=== PATIENT | male | born 1965 | race Caucasian/White ===

== ENCOUNTER 2019-12-19 09:26 | Emergency (ER) | payer MEDICAID ==
--- NOTE | 2019-12-19 09:59 | EDM.PDOC ---
ED HPI GENERAL MEDICAL PROBLEM - General Chief Complaint: Behavioral/Psych Stated Complaint: ALTERED MENTAL STATUS Time Seen by Provider: 12/19/19 09:54 Source of Information: Reports: Patient, Family (daughter) History Limitations: Reports: No Limitations - History of Present Illness INITIAL COMMENTS - FREE TEXT/NARRATIVE: 54-year-old male brought to the ED from [facility] where he resides [place] the city. He is brought to the ED for evaluation in regards to apparent underlying dementia symptoms. He has apparently been assessed multiple times at [facility] psychiatric facility in the past. Apparently he has deteriorated in function and it is the request of his psychiatrist that he be seen at the nearest hospital for evaluation and transport ideally to [facility] in [place]. I find him to be very pleasant cooperative and acting quite normally. He does not drink alcohol. He is unmarried. He denies street drug use. He smokes a pack to pack and half cigarettes per day. He takes no medications. There is no history of traumatic brain injury. It is unclear when his symptoms of poor memory and deterioration in cognitive function started. Onset: Unknown/Unsure Duration: Constant, Getting Worse Location: Reports: Other (Apparently he is suffering from memory impairment and cognitive decline combined with dementia of early onset by history. He has not been seen in our hospital in the past and therefore no imaging of his brain is available.) Quality: Reports: Other Severity: Moderate Improves with: Reports: None Worsens with: Reports: None Context: Reports: Other (Declining cognitive and memory compatible with organic brain disease which is been labeled as dementia. Is unclear if he has Lewy body dementia as he is quite young.). Denies: Activity, Exercise, Lifting, Sick Contact, Trauma Associated Symptoms: Reports: Confusion. Denies: Chest Pain, Cough, cough w sputum, Diaphoresis, Fever/Chills, Headaches, Loss of Appetite, Malaise, Nausea/ Vomiting, Seizure, Shortness of Breath, Syncope Treatments BIT TRIPOLER: Reports: Other (see below) (He takes no medications.) - Related Data Allergies Allergy/AdvReac Type Severity Reaction Status Date / Time No Known Allergies Allergy Verified 12/19/19 09:48 Home Meds: Home Meds . [Unable to Verify Home Med List] 12/19/19 [History] Past Medical History Musculoskeletal History: Reports: Back Pain, Chronic (Intermittent low back pain.) Neurological History: Reports: Other (See Below) (Apparently has been declining and level of memory impairment and cognitive function compare with a form of dementia.) Psychiatric History: Reports: Aggressive/Hostile Behaviors, Antisocial Behaviors , Dementia (Working diagnosis is Lewy body dementia), Mood Swings, Other (See Below) (Insomnia. Treated with trazodone at at bedtime.) Endocrine/Metabolic History: Reports: Diabetes, Type II (Patient is a type II diabetic controlled with insulin. Lantus 50 units at bedtime. 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 He does not often use them.) Respiratory: Reports: Cough (Occasional nonproductive cough. He is a smoker of a pack and 1/2/day for the last 40 years) Cardiovascular: Denies: Chest Pain, Blood Pressure Problem, Claudication, Dyspnea on Exertion, Edema, Lightheadedness, Orthopnea Endocrine: Reports: No Symptoms GI/Abdominal: Reports: No Symptoms : Reports: Other (Nocturia possibly once.) Musculoskeletal: Reports: Back Pain, Joint Pain (Patient problems with low back pain) Skin: Reports: No Symptoms ( nasal knee and hip pain) Neurological: Reports: Confusion, Pre-Existing Deficit (Apparently he has been developing dementia symptoms for the last year). Denies: Dizziness, Headache, Numbness, Paresthesia, Seizure, Syncope, Tingling, Tremors, Trouble Speaking, Difficulty Walking, Weakness, Change in Speech, Gait Disturbance, Other Psychiatric: Reports: Anxiety (Mild anxiety), Confusion, Mood Lability. Denies : Hallucinations, Homicidal Ideation Hematologic/Lymphatic: Reports: No Symptoms Immunologic: Reports: No Symptoms - Physical Exam Exam: See Below Exam Limited By: No Limitations General Appearance: Alert, WD/WN, No Apparent Distress, Other (Temperature is 36.1. Heart rate is 81 respiratory is 18 BP 123/99 pulse ox 98% on room air) Eye Exam: Bilateral Eye: Normal Inspection, PERRL Ears: Normal TMs (No blepharal pallor or scleral icterus.) Throat/Mouth: Normal Inspection, Normal Lips, Normal Oropharynx, Other (No) Head Exam: Atraumatic, Normocephalic ( abnormalities of the oropharynx), Other ( No outward signs of any head or facial trauma) Neck: Normal Inspection, Supple, Non-Tender, Full Range of Motion. No: Carotid Bruit, Lymphadenopathy (L), Lymphadenopathy (R), Thyromegaly Respiratory/Chest: No Respiratory Distress, Lungs Clear, Normal Breath Sounds, No Accessory Muscle Use, Other (Occasional nonproductive cough). No: Rhonchi, Wheezing Cardiovascular: Normal Peripheral Pulses, Regular Rate, Rhythm, No Edema, No Gallop, No Murmur, No Rub GI/Abdominal: Normal Bowel Sounds, Soft, Non-Tender, No Organomegaly, No Mass, Pelvis Stable, Other (No surgical scars) (Male) Exam: No Hernia Neuro Exam (Abbreviated): Alert, Oriented, CN II-XII Intact, Normal Gait, No Motor/Sensory Deficits, Memory Loss Remote Events, Memory Loss Recent Events. No: Abnormal Gait, Abnormal Reflexes DTR: 1+: Achilles (R), Achilles (L), 2+: Bicep (R), Bicep (L), Patella (R), Patella (L) Back Exam: Normal Inspection, Full Range of Motion. No: CVA Tenderness (L), CVA Tenderness (R) Extremities: Normal Inspection, Normal Range of Motion, Non-Tender, No Pedal Edema Psychiatric: Normal Affect, Normal Mood Skin Exam: Warm, Dry, Intact, Normal Color, No Rash EKG INTERPRETATION EKG Date: 12/19/19 Time: 10:01 Rhythm: NSR Rate (Beats/Min): 69 [place]: LAD-Left [place] Deviation P-Wave: Present (Minimal left axis deviation of -3 degrees) QRS: Other (Decreased voltage precordial leads. Early R wave transition consider septal hypertrophy pattern versus right ventricular appear to be pattern) ST-T: Other (T wave flattening in leads III and aVF nonspecific findings) QT: Normal EKG Interpretation Comments: Borderline ECG Course - Vital Signs Last Recorded V/S: Last Vital Signs Temp 36.1 C 12/19/19 09:44 Pulse 81 12/19/19 09:44 Resp 18 12/19/19 09:44 BP 123/99 H 12/19/19 09:44 Pulse Ox 98 12/19/19 09:44 - Orders/Labs/Meds Orders: Active Orders 24 hr Category Date Time Status EKG Documentation Completion [RC] STAT Care 12/19/19 10:00 Active URINALYSIS W/MICROSCOPIC [UA W/MICROSCOPIC] [URIN] Stat Lab 12/19/19 11:28 Ordered Labs: Laboratory Tests 12/19/19 12/19/19 12/19/19 Range/Units 10:10 10:10 10:10 WBC 8.60 (4.23-9.07) K/mm3 RBC 5.33 (4.63-6.08) M/mm3 Hgb 16.1 (13.7-17.5) gm/dl Hct 46.2 (40.1-51.0) % MCV 86.7 (79.0-92.2) fl MCH 30.2 (25.7-32.2) pg MCHC 34.8 (32.2-35.5) g/dl RDW Std Deviation 40.8 (35.1-43.9) fL Plt Count 200 (163-337) K/mm3 MPV 10.6 (9.4-12.3) fl Neut % (Auto) 57.9 (34.0-67.9) % Lymph % (Auto) 30.6 (21.8-53.1) % Toombs % (Auto) 9.5 (5.3-12.2) % Eos % (Auto) 1.4 (0.8-7.0) Baso % (Auto) 0.5 (0.1-1.2) % Neut # (Auto) 4.98 (1.78-5.38) K/mm3 Lymph # (Auto) 2.63 (1.32-3.57) K/mm3 Toombs # (Auto) 0.82 (0.30-0.82) K/mm3 Eos # (Auto) 0.12 (0.04-0.54) K/mm3 Baso # (Auto) 0.04 (0.01-0.08) K/mm3 Sodium 134 L (136-145) mEq/L Potassium 4.5 (3.5-5.1) mEq/L Chloride 102 (98-107) mEq/L Carbon Dioxide 21 (21-32) mEq/L Anion Gap 15.5 H (5-15) BUN 20 H (7-18) mg/dL Creatinine 1.0 (0.7-1.3) mg/dL Est Cr Clr Drug Dosing 86.18 mL/min Estimated GFR (MDRD) > 60 (>60) mL/min BUN/Creatinine Ratio 20.0 H (14-18) Glucose 346 H (74-106) mg/dL Hemoglobin A1c (4.50-6.20) % Calcium 9.3 (8.5-10.1) mg/dL Magnesium 2.0 (1.8-2.4) mg/dl Total Bilirubin 0.6 (0.2-1.0) mg/dL AST 7 L (15-37) U/L ALT 25 (16-63) U/L Alkaline Phosphatase 64 (46-116) U/L C-Reactive Protein 1.5 H* (<1.0) mg/dL Total Protein 7.0 (6.4-8.2) g/dl Albumin 3.5 (3.4-5.0) g/dl Globulin 3.5 gm/dL Albumin/Globulin Ratio 1.0 (1-2) TSH 3rd Generation 1.073 (0.358-3.74) uIU/mL Salicylates 3.7 (2.8-20) mg/dL Urine Opiates Screen (IPDBCY=774) Ur Buprenorphine Scrn (CUTOFF=10) Ur Oxycodone Screen (SQR3OG=365) Urine Methadone Screen (STF4WL=769) Ur Propoxyphene Screen (VEVNOW=205) Acetaminophen 0 L (10-30) ug/mL Ur Barbiturates Screen (UXUHMJ=862) Ur Tricyclics Screen (ECYOOV=967) Ur Phencyclidine Scrn (CUTOFF=25) Ur Amphetamine Screen (PEAYKR=535) U Methamphetamines Scrn (QCDHYV=428) U Benzodiazepines Scrn (GJNBJK=701) U Cocaine Metab Screen (NWWYDI=058) U Marijuana (THC) Screen (CUTOFF=50) Ethyl Alcohol 0.00 (0.00) gm% 12/19/19 12/19/19 Range/Units 10:10 10:15 WBC (4.23-9.07) K/mm3 RBC (4.63-6.08) M/mm3 Hgb (13.7-17.5) gm/dl Hct (40.1-51.0) % MCV (79.0-92.2) fl MCH (25.7-32.2) pg MCHC (32.2-35.5) g/dl RDW Std Deviation (35.1-43.9) fL Plt Count (163-337) K/mm3 MPV (9.4-12.3) fl Neut % (Auto) (34.0-67.9) % Lymph % (Auto) (21.8-53.1) % Toombs % (Auto) (5.3-12.2) % Eos % (Auto) (0.8-7.0) Baso % (Auto) (0.1-1.2) % Neut # (Auto) (1.78-5.38) K/mm3 Lymph # (Auto) (1.32-3.57) K/mm3 Toombs # (Auto) (0.30-0.82) K/mm3 Eos # (Auto) (0.04-0.54) K/mm3 Baso # (Auto) (0.01-0.08) K/mm3 Sodium (136-145) mEq/L Potassium (3.5-5.1) mEq/L Chloride (98-107) mEq/L Carbon Dioxide (21-32) mEq/L Anion Gap (5-15) BUN (7-18) mg/dL Creatinine (0.7-1.3) mg/dL Est Cr Clr Drug Dosing mL/min Estimated GFR (MDRD) (>60) mL/min BUN/Creatinine Ratio (14-18) Glucose (74-106) mg/dL Hemoglobin A1c 7.10 H (4.50-6.20) % Calcium (8.5-10.1) mg/dL Magnesium (1.8-2.4) mg/dl Total Bilirubin (0.2-1.0) mg/dL AST (15-37) U/L ALT (16-63) U/L Alkaline Phosphatase (46-116) U/L C-Reactive Protein (<1.0) mg/dL Total Protein (6.4-8.2) g/dl Albumin (3.4-5.0) g/dl Globulin gm/dL Albumin/Globulin Ratio (1-2) TSH 3rd Generation (0.358-3.74) uIU/mL Salicylates (2.8-20) mg/dL Urine Opiates Screen Negative (VLMQCK=104) Ur Buprenorphine Scrn Negative (CUTOFF=10) Ur Oxycodone Screen Negative (XMF2ZB=669) Urine Methadone Screen Negative (HRV4WM=722) Ur Propoxyphene Screen Negative (ZPIOWW=044) Acetaminophen (10-30) ug/mL Ur Barbiturates Screen Negative (APNDOM=558) Ur Tricyclics Screen Negative (KHDABP=110) Ur Phencyclidine Scrn Negative (CUTOFF=25) Ur Amphetamine Screen Negative (EHFAZP=688) U Methamphetamines Scrn Negative (YWIFXH=700) U Benzodiazepines Scrn Negative (UEKCQQ=854) U Cocaine Metab Screen Negative (LDTTRP=147) U Marijuana (THC) Screen Negative (CUTOFF=50) Ethyl Alcohol (0.00) gm% Meds: Medications Discontinued Medications Generic Name Dose Route Start Last Admin Trade Name Freq PRN Reason Stop Dose Admin Diphenhydramine HCl 50 mg 12/19/19 10:33 12/19/19 10:46 Benadryl PO 12/19/19 10:34 50 mg ONETIME ONE Administration Insulin Human Regular 12 unit 12/19/19 11:30 12/19/19 11:41 Humulin R SUBCUT 12/19/19 11:31 12 unit ONETIME ONE Administration Lorazepam 2 mg 12/19/19 10:33 12/19/19 10:46 Ativan PO 12/19/19 10:34 2 mg ONETIME ONE Administration Lorazepam 2 mg 12/19/19 12:36 Ativan PO 12/19/19 12:37 ONETIME ONE Ziprasidone 10 mg 12/19/19 12:13 Geodon PO 12/19/19 12:14 ONETIME ONE Ziprasidone 20 mg 12/19/19 12:37 Geodon PO 12/19/19 12:38 ONETIME ONE - Radiology Interpretation Free Text/Narrative:: 54-year-old male brought to the ED for evaluation of gradually worsening dementia. He has been seen in and out of [facility] apparently over the last 6 months. He was at home to see how he would function on his own over the last week but has failed this trial. Apparently still trying to drive a motor vehicle and easily gets lost. He is not capable of looking after himself in terms of doing any cooking or self hygiene etc. He needs direction to perform all of these procedures. He more or less requires 24 -hour day care. Daughter apparently has been in contact with his psychiatrist Dr. Bryant in [facility] in [place] and she advised that he be brought to the nearest hospital for medical evaluation and potential transport to that facility. Apparently he has a history of getting very angry and belligerent. At the time he is seen in the ED he is cooperative. However he was brought here under false pretenses that he was going to see a baby. Plan will be to have an ECG performed and routine labs and urine drug screen. - Re-Assessments/Exams Free Text/Narrative Re-Assessment/Exam: 12/19/19 10:34 further history obtained from Dr. Bryant in [place] indicates that the working diagnosis here is Lewy body dementia. Explain his young age of development of dementia and the rapidity of which it has occurred. She recommends 2 mg of Ativan and 50 mg of Benadryl p.o. After the labs are back we will look for appropriate transport to [facility] in [place]. Committal papers have been filled out. 12/19/19 11:17 White count is 8.60 with an auto differential of 58%. Hemoglobin is 16.1 with hematocrit of 46.2 suggesting mild hemoconcentration. The patient has been taking fluids in the ED. Platelet count is 200,000. Sodium is slightly low at 134 with a potassium of 4.5 chloride is 102 with a bicarb of 21. Anion gap is 15.5. BUN is 20 with a creatinine of 1.0. GFR remains greater than 60. Glucose is elevated at 346. Calcium 9.3 magnesium 2.0. Liver function normal. C-reactive protein is 1.5. Total protein is 7.0 with an albumin fraction of 3.5. TSH is normal at 1.073. Urine drug screen reveals a salicylate level of 3.7. Acetaminophen is 0. Blood alcohol is 0.00 and drug screen is negative. A hemoglobin A1c will be ordered to rule out occult type 2 diabetes. 12/19/19 11:19 patient has been accepted by department of psychiatry services at [facility] in [place] Dr. Bryant. We are in the process of arranging transportation tentatively by ambulance with a [facility] deputy on board. She did take Benadryl 50 mg p.o. with Ativan 2 mg p.o. at approximately 1050 hrs. 12/19/19 11:30 she did not eat much of his dinner meal. He indicates that he did take his 50 units of Lantus insulin last evening. He takes this once daily according to records obtained from [place]. He usually takes anywhere from 3 to 11 units of insulin with meals. Current blood sugar is 346 he will therefore be given 12 units of regular insulin subcu at this time. 12/19/19 11:37 second ECG reveals no wandering of the baseline. There is a Q wave in V1 only. There is early R wave transition in V2. Concern for right ventricular peritoneal versus septal hypertrophy pattern. There is an acute early repolarization pattern in V2 to V5. There is a short WI interval. ST segment depression appreciated in leads II, III and aVF and V6 now but all minimal compared to initial assessment. Still concerning for inferior apical ischemia. 12/19/19 12:38 Patient is becoming increasingly agitated the longer we make him wait for transfer. I am going to therefore add another 2 mg of Ativan orally if he will take it and Geodon 20 mg p.o. as well. Sprayer Operator deputy is here from [facility] in the ambulance should be here within the next 20 minutes to provide transport to [facility]. Departure - Departure Time of Disposition: 12:45 Disposition: DC/Tfer to Psych Hosp/Unit 65 Condition: Poor Clinical Impression: Lewy body dementia with behavioral disturbance - Discharge Information *PRESCRIPTION DRUG MONITORING PROGRAM REVIEWED*: Not Applicable *COPY OF PRESCRIPTION DRUG MONITORING REPORT IN PATIENT KAMRON: Not Applicable Referrals: Vishal Gates MD [Primary Care Provider] - Forms: ED Department Discharge Additional Instructions: Patient to be transferred to [facility] in [place] under the care of Dr. Bryant from the department of psychiatry due to increased behavioral problems related to dementia. The working diagnosis is that he has Lewy body dementia since his declining cognitive function and memory impairment has occurred rather rapidly. Also his young age. Patient became somewhat agitated at the time of discharge and required Geodon and 20 mg orally with Ativan 2 mg orally once again. Sepsis Event Note - Evaluation Sepsis Screening Result: No Definite Risk - Focused Exam Vital Signs: Vital Signs Temp Pulse Resp BP Pulse Ox 12/19/19 09:44 36.1 C 81 18 123/99 H 98 Date Exam was Performed: 12/19/19 Time Exam was Performed: 12:45 - My Orders Last 24 Hours: My Active Orders 12/19/19 10:00 EKG Documentation Completion [RC] STAT 12/19/19 11:28 URINALYSIS W/MICROSCOPIC [UA W/MICROSCOPIC] [URIN] Stat - Assessment/Plan Last 24 Hours: My Active Orders 12/19/19 10:00 EKG Documentation Completion [RC] STAT 12/19/19 11:28 URINALYSIS W/MICROSCOPIC [UA W/MICROSCOPIC] [URIN] Stat
[2019-12-19] MEDS ORDERED: LORazepam 1 MG Tab PO ONE ×2 (10:33→12:36)
[2019-12-19] MEDS ORDERED: diphenhydrAMINE 50 MG Cap PO ONE (10:33)
[2019-12-19 11:12] LABS: ACETAMINOPHEN 0 ug/mL (10-30)
[2019-12-19] MEDS ORDERED: Insulin Regular, Human 100 Units/ML 3 ML Vial SUBCUT ONE (11:30)
[2019-12-19 11:37] LABS: HEMOGLOBIN A1C 7.1 % (4.50-6.20)
[2019-12-19] MEDS ORDERED: Ziprasidone HCl 20 MG Cap PO ONE ×2 (12:13→12:37)
[2019-12-19] MEDS ORDERED: Nicotine 21 MG/24 Hr Patch TRDERM ONE (12:45)
== END 2019-12-19 13:10 ==
LOC: JD.ED 09:26
DX: G31.83 Neurocognitive disorder with Lewy bodies (principal); F02.81 Dementia in other diseases classified elsewhere, unspecified severity, with behavioral disturbance; E11.9 Type 2 diabetes mellitus without complications; Z79.4 Long term (current) use of insulin; F17.210 Nicotine dependence, cigarettes, uncomplicated
CPT/HCPCS: 36415; 80053; 80306; 80307; 81001; 82962; 83036; 83735; 84443; 85025; 86140; 93005; 99285; A9270; J1815; 93010

== ENCOUNTER 2021-03-20 13:38 | Emergency (ER) | payer MEDICAID ==
--- NOTE | 2021-03-20 14:03 | EDM.PDOCBH ---
ED HPI GENERAL MEDICAL PROBLEM - General Chief Complaint: Behavioral/Psych Stated Complaint: MENTAL HEALTH EVALUATION Time Seen by Provider: 03/20/21 13:57 Source of Information: Reports: Patient, Family (daughter), Long-Term Records (Minor), RN Notes Reviewed, Other (Account Development Executive, Sole Myers) History Limitations: Reports: No Limitations - History of Present Illness INITIAL COMMENTS - FREE TEXT/NARRATIVE: Patient is a 56-year-old male brought into the ER by his daughter for a mental health evaluation. Patient is known to have Lewy body dementia. We were made aware from staff at [facility], that the patient has been smoking cigarettes, and then putting him out on the carpet, putting him and other residents at risk or harm. [facility] does also state that Mansoor is leaving [place], he is walking in the middle the street, putting himself at extreme harm or risk. They state that he is refusing his needed medications, and does get angry or agitated with redirection. Patient does have a history of hostile behavior, and was seen in this ER roughly a year ago, and was given medications to help calm him down. He does have conservatorship granted to his daughter, Alex, and a emergency hold is in place for this gentleman for ongoing management. When I talk with the patient, he is not hearing things that are not there, is not seeing things that are not there, he states that he has no sick symptoms or other concerns. General consensus is that the patient will likely need [facility] psychiatric placement. - Related Data Allergies Allergy/AdvReac Type Severity Reaction Status Date / Time No Known Allergies Allergy Verified 03/20/21 13:58 Home Meds: Home Meds . [Unable to Verify Home Med List] 12/19/19 [History] Past Medical History Gastrointestinal History: Reports: GERD Musculoskeletal History: Reports: Back Pain, Chronic Neurological History: Reports: Other (See Below) Other Neuro History: Lewy Body Dementia Psychiatric History: Reports: Aggressive/Hostile Behaviors, Antisocial Behaviors, Dementia (Lewy Body), Mood Swings, Other (See Below) Other Psychiatric History: Insomnia Endocrine/Metabolic History: Reports: Diabetes, Type II, Obesity/BMI 30+ Social & Family History - Family History Family Medical History: No Pertinent Family History - Tobacco Use Tobacco Use Status *Q: Current Every Day Tobacco User Years of Tobacco use: 20 Packs/Tins Daily: 1 - Caffeine Use Caffeine Use: Reports: Soda - Recreational Drug Use Recreational Drug Use: No - Living Situation & Occupation Living situation: Reports: , Alone (Lives alone in [place], [place]) 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 ED EXAM, BEHAVIORAL HEALTH - Physical Exam Exam: See Below Exam Limited By: No Limitations General Appearance: Alert, WD/WN, No Apparent Distress Respiratory/Chest: No Respiratory Distress, Lungs Clear, Normal Breath Sounds, No Accessory Muscle Use, Chest Non-Tender Cardiovascular: Normal Peripheral Pulses, Regular Rate, Rhythm, No Edema GI/Abdominal: Normal Bowel Sounds, Soft, Non-Tender, No Distention, No Mass Extremities: Normal Inspection, Normal Capillary Refill Neurological: Alert, Normal Mood/Affect, Normal Cognition, Oriented x 3 Psychiatric: Alert, Normal Affect, Normal Cognition, Normal Mood. No: Suicidal Plan, Suicidal Thoughts, Auditory Hallucinations, Visual Hallucinations Skin Exam: Warm, Dry, Intact, Normal color, No rash #1 Interpretation EKG Date: 03/20/21 Time: 14:31 Rhythm: NSR Rate (Beats/Min): 90 [place]: Normal P-Wave: Present QRS: Normal ST-T: Normal QT: Normal Comparison: NA - No Prior EKG EKG Interpretation Comments: No obvious ischemia or acute ST changes noted, reviewed by myself and Dr. Lu. COURSE, BEHAVIORAL HEALTH COMP - Course Vital Signs: Last Vital Signs Temp 97.6 F 03/20/21 13:55 Pulse 104 H 03/20/21 13:55 Resp 16 03/20/21 13:55 BP 152/106 H 03/20/21 13:55 Pulse Ox 96 03/20/21 13:55 Orders, Labs, Meds: Laboratory Tests 03/20/21 03/20/21 03/20/21 Range/Units 14:00 14:04 14:04 WBC 7.16 (4.23-9.07) K/mm3 RBC 5.33 (4.63-6.08) M/mm3 Hgb 15.7 (13.7-17.5) gm/dl Hct 46.2 (40.1-51.0) % MCV 86.7 (79.0-92.2) fl MCH 29.5 (25.7-32.2) pg MCHC 34.0 (32.2-35.5) g/dl RDW Std Deviation 43.7 (35.1-43.9) fL Plt Count 172 (163-337) K/mm3 MPV 10.5 (9.4-12.3) fl Neut % (Auto) 53.6 (34.0-67.9) % Lymph % (Auto) 33.5 (21.8-53.1) % Becker % (Auto) 10.5 (5.3-12.2) % Eos % (Auto) 1.7 (0.8-7.0) Baso % (Auto) 0.4 (0.1-1.2) % Neut # (Auto) 3.84 (1.78-5.38) K/mm3 Lymph # (Auto) 2.40 (1.32-3.57) K/mm3 Becker # (Auto) 0.75 (0.30-0.82) K/mm3 Eos # (Auto) 0.12 (0.04-0.54) K/mm3 Baso # (Auto) 0.03 (0.01-0.08) K/mm3 Sodium 139 (136-145) mEq/L Potassium 4.0 (3.5-5.1) mEq/L Chloride 106 (98-107) mEq/L Carbon Dioxide 22 (21-32) mEq/L Anion Gap 15.0 (5-15) BUN 14 (7-18) mg/dL Creatinine 1.1 (0.7-1.3) mg/dL Est Cr Clr Drug Dosing 76.50 mL/min Estimated GFR (MDRD) > 60 (>60) mL/min BUN/Creatinine Ratio 12.7 L (14-18) Glucose 316 H (70-99) mg/dL POC Glucose (70-99) mg/dL Calcium 8.2 L (8.5-10.1) mg/dL Total Bilirubin 0.4 (0.2-1.0) mg/dL AST 17 (15-37) U/L ALT 21 (16-63) U/L Alkaline Phosphatase 67 (46-116) U/L Total Protein 6.7 (6.4-8.2) g/dl Albumin 3.3 L (3.4-5.0) g/dl Globulin 3.4 gm/dL Albumin/Globulin Ratio 1.0 (1-2) TSH 3rd Generation 0.924 (0.358-3.74) uIU/mL Salicylates (2.8-20) mg/dL Urine Opiates Screen (XVNMRR=892) Ur Buprenorphine Scrn (CUTOFF=10) Ur Oxycodone Screen (VQS9QL=836) Urine Methadone Screen (QMJ8CW=855) Ur Propoxyphene Screen (HXYXRL=687) Acetaminophen 0 L (10-30) ug/mL Ur Barbiturates Screen (UMNNBV=802) Ur Tricyclics Screen (KRNFPN=165) Ur Phencyclidine Scrn (CUTOFF=25) Ur Amphetamine Screen (DOPOOK=859) U Methamphetamines Scrn (ABILIK=541) U Benzodiazepines Scrn (HOSPGK=519) U Cocaine Metab Screen (ZDYLOV=012) U Marijuana (THC) Screen (CUTOFF=50) Ethyl Alcohol 0.00 (0.00) gm% SARS-CoV-2 RNA (ROVERTO) Negative (NEGATIVE) 03/20/21 03/20/21 03/21/21 Range/Units 14:04 14:30 06:41 WBC (4.23-9.07) K/mm3 RBC (4.63-6.08) M/mm3 Hgb (13.7-17.5) gm/dl Hct (40.1-51.0) % MCV (79.0-92.2) fl MCH (25.7-32.2) pg MCHC (32.2-35.5) g/dl RDW Std Deviation (35.1-43.9) fL Plt Count (163-337) K/mm3 MPV (9.4-12.3) fl Neut % (Auto) (34.0-67.9) % Lymph % (Auto) (21.8-53.1) % Becker % (Auto) (5.3-12.2) % Eos % (Auto) (0.8-7.0) Baso % (Auto) (0.1-1.2) % Neut # (Auto) (1.78-5.38) K/mm3 Lymph # (Auto) (1.32-3.57) K/mm3 Becker # (Auto) (0.30-0.82) K/mm3 Eos # (Auto) (0.04-0.54) K/mm3 Baso # (Auto) (0.01-0.08) K/mm3 Sodium (136-145) mEq/L Potassium (3.5-5.1) mEq/L Chloride (98-107) mEq/L Carbon Dioxide (21-32) mEq/L Anion Gap (5-15) BUN (7-18) mg/dL Creatinine (0.7-1.3) mg/dL Est Cr Clr Drug Dosing mL/min Estimated GFR (MDRD) (>60) mL/min BUN/Creatinine Ratio (14-18) Glucose (70-99) mg/dL POC Glucose 313 H (70-99) mg/dL Calcium (8.5-10.1) mg/dL Total Bilirubin (0.2-1.0) mg/dL AST (15-37) U/L ALT (16-63) U/L Alkaline Phosphatase (46-116) U/L Total Protein (6.4-8.2) g/dl Albumin (3.4-5.0) g/dl Globulin gm/dL Albumin/Globulin Ratio (1-2) TSH 3rd Generation (0.358-3.74) uIU/mL Salicylates 2.6 L (2.8-20) mg/dL Urine Opiates Screen Negative (RUGGDY=700) Ur Buprenorphine Scrn Negative (CUTOFF=10) Ur Oxycodone Screen Negative (CHO0CX=237) Urine Methadone Screen Negative (TKX4KJ=843) Ur Propoxyphene Screen Negative (KKXUDK=566) Acetaminophen (10-30) ug/mL Ur Barbiturates Screen Negative (PBITYC=661) Ur Tricyclics Screen Negative (GRIFKY=663) Ur Phencyclidine Scrn Negative (CUTOFF=25) Ur Amphetamine Screen Negative (MDTBIH=310) U Methamphetamines Scrn Negative (PBZUAW=086) U Benzodiazepines Scrn Negative (FQJGJW=553) U Cocaine Metab Screen Negative (NZKTLO=759) U Marijuana (THC) Screen Negative (CUTOFF=50) Ethyl Alcohol (0.00) gm% SARS-CoV-2 RNA (ROVERTO) (NEGATIVE) Medications Discontinued Medications Generic Name Dose Route Start Last Admin Trade Name Freq PRN Reason Stop Dose Admin Diphenhydramine HCl 50 mg 03/20/21 16:48 Diphenhydramine 50 Mg/Ml Sdv IM 03/20/21 16:49 ONETIME ONE Haloperidol Lactate 10 mg 03/20/21 16:48 Haloperidol Lactate 5 Mg/Ml Sdv IM 03/20/21 16:49 ONETIME ONE Insulin Human Regular 6 unit 03/20/21 15:36 03/20/21 15:56 Insulin Regular, Human 100 Units/Ml 3 Ml Vial SUBCUT 03/20/21 15:37 6 unit ONETIME ONE Administration Insulin Human Regular 8 unit 03/21/21 08:16 Insulin Regular, Human 100 Units/Ml 3 Ml Vial SUBCUT 03/21/21 08:17 ONETIME ONE Lorazepam 2 mg 03/20/21 16:48 Lorazepam 2 Mg/Ml Sdv IM 03/20/21 16:49 ONETIME ONE Nicotine 21 mg 03/20/21 20:00 Nicotine 21 Mg/24 Hr Patch TRDERM 03/20/21 20:01 ONETIME ONE Discharge vs Psych Eval/Treatment:: 03/20/21 14:34 Patient presents to the ER for a mental health evaluation. Covid swab was obtained at time of triage, other labs have been taken as well. Sole Myers, our social media designer did initially tell me that [facility] in [place] would accept this patient for ongoing management; as it was reported to her from [place]. Once laboratory evaluation has resulted, we will go ahead and try to call [facility] for placement. 03/20/21 15:42 Patient's laboratory evaluation has returned, and is unremarkable. Blood sugar was slightly elevated at 312, and I have ordered 6 units insulin subacute for this. I did try to call [facility] and I was able to speak with 1 call and he states that they have no beds available for any male psych patients. I did call Sole Myers back, and explained this to her, and she will try to call them, if they continue to be on diversion or have no beds available, we might be looking at the [facility] for placement. 03/20/21 16:41 I did speak with staff at [facility] in [place], and they were also on diversion for psychiatric care. I spoke with Lulu, classification case manager avionic technician for [facility], and she states she will be up to evaluate the patient for the [facility], after she is in contact with the patient's daughter, Cait. 03/20/21 17:57 Sole Myers our social media designer did call to our facility, and states that she has been in touch with [place], and there has been some communication with [facility] in [place], and it was told to Sole that [facility] in [place] might be able to accept this patient for observation for medical, with tentative placement into a psych unit for ongoing management. Sole is going to call [facility] to confirm, and then talk with the guardian, Cait and see if she would be okay with this. 03/20/21 18:44 I did try to contact [facility] 1 call, I did speak with their hospitalist, Dr. Murray and she did decline hospital admission, for snf placement-states that the patient would likely necessitate a locked unit d/t his psych history; which they cannot provide at this time. We will go forward with plan to hopefully get him into the [facility] for ongoing management. 03/20/21 19:49 I was able to talk with Lulu from [facility], and she does state that the [facility] will accept this patient in the morning for transfer. I will have our banquet stewardess make this aware to the belly dancer's department so we can facilitate transfer. [facility] is asking for a doc to doc call in the morning prior to transfer. Admission paperwork is being done per the patient's daughter, Ninfa who is guardian over the patient. If the patient however does get agitated, or unruly, he will be transported to the intermediate for holding overnight until we can transfer him. Departure - Departure Time of Disposition: 21:00 Disposition: DC/Tfer to Psych Hosp/Unit 65 Clinical Impression: Lewy body dementia with behavioral disturbance - Discharge Information *PRESCRIPTION DRUG MONITORING PROGRAM REVIEWED*: No *COPY OF PRESCRIPTION DRUG MONITORING REPORT IN PATIENT KAMRON: No Referrals: Carolin Dueñas NP [Primary Care Provider] - Forms: ED Department Discharge Sepsis Event Note (ED) - Evaluation Sepsis Screening Result: No Definite Risk
[2021-03-20 15:06] LABS: ACETAMINOPHEN 0 ug/mL (10-30)
[2021-03-20] MEDS ORDERED: Insulin Regular, Human 100 Units/ML 3 ML Vial SUBCUT ONE (15:36)
[2021-03-20] MEDS ORDERED: LORazepam 2 MG/ML SDV IM ONE (16:48)
[2021-03-20] MEDS ORDERED: diphenhydrAMINE 50 MG/ML SDV IM ONE (16:48)
[2021-03-20] MEDS ORDERED: Haloperidol Lactate 5 MG/ML SDV IM ONE (16:48)
[2021-03-20] MEDS ORDERED: Nicotine 21 MG/24 Hr Patch TRDERM ONE (20:00)
[2021-03-21] MEDS ORDERED: Insulin Regular, Human 100 Units/ML 3 ML Vial SUBCUT ONE (08:16)
== END 2021-03-21 08:50 ==
LOC: JD.ED 13:38
DX: G31.83 Neurocognitive disorder with Lewy bodies (principal); F02.81 Dementia in other diseases classified elsewhere, unspecified severity, with behavioral disturbance; E11.9 Type 2 diabetes mellitus without complications; E66.9 Obesity, unspecified; Z68.41 Body mass index [BMI] 40.0-44.9, adult; Z72.0 Tobacco use; Z20.822 Contact with and (suspected) exposure to COVID-19
CPT/HCPCS: 36415; 80053; 80143; 80179; 80306; 80307; 82947; 84443; 85025; 87635; 93005; 99285; J1815; 93010; 99284; U0002